=== PATIENT | male | born 1955 | race Caucasian/White ===

== ENCOUNTER → 2022-11-13 12:30 | Outpatient (CLI) | payer SELFPAY ==
--- NOTE | ~2022-11-13 | XR_ITS ---
EXAMINATION: XR shoulder LT min 2V DATE: 11/13/2022 13:10 INDICATION: Anterior left shoulder pain. Fall one month ago. TECHNIQUE: 4 views of left shoulder were obtained. COMPARISON: None. FINDINGS: Bone alignment is normal. No fracture. There is mild osteoarthritis of glenohumeral joint a nd moderate osteoarthritis of acromioclavicular joint. IMPRESSION: 1. Polyarticular osteoarthritis. Reviewed, dictated and finalized at location E.
== END ==
PROVIDERS: PCP Internal Medicine; Visit Provider Internal Medicine
DX: M19.012 Primary osteoarthritis, left shoulder (principal)
CPT/HCPCS: 73030